=== PATIENT | male | born 2005 | race Caucasian/White ===

== ENCOUNTER 2024-06-11 01:41 | Emergency (ER) | payer BC ==
[2024-06-11] MEDS ORDERED: Ondansetron PF 4 MG/2 ML Vial ONE (02:06)
== END 2024-06-11 04:40 | disposition home or self-care (01) ==
LOC: CSHERS 01:41
DX: F10.129 Alcohol abuse with intoxication, unspecified (principal)
CPT/HCPCS: 36415; 80307; 96374; J2405